=== PATIENT | female | born 1975 | race Caucasian/White ===

== ENCOUNTER 2018-03-18 13:17 | Outpatient (CLI) | payer BC ==
--- NOTE | 2018-03-18 15:41 | ULT ---
LIMITED LEFT BREAST ULTRASOUND: DATE: 03/18/2018. PROVIDED CLINICAL HISTORY: Left breast palpable finding. FINDINGS: Limited sonographic interrogation of the left breast is performed in the region of palpable concern a t the 1 o'clock position. The sonographic appearance of the breast parenchyma in this region is norm al. IMPRESSION: BIRADS category 1 - negative. Negative imaging findings should not preclude further evaluation of a clinically suspicious area. The patient is referred back to her clinician. POS: OFF
== END 2018-03-18 13:18 | disposition home or self-care (01) ==
LOC: BICMAMMO 13:17
PROVIDERS: ATTEND Obstetrics & Gynecology
DX: N63.21 Unspecified lump in the left breast, upper outer quadrant (principal); Z80.3 Family history of malignant neoplasm of breast
CPT/HCPCS: 77066; G0279